=== PATIENT | male | born 1960 | race Caucasian/White ===

== ENCOUNTER 2020-02-24 01:56 | Inpatient (IN) | payer BC, OTHER ==
[2020-02-24 02:54] LABS: Hemoglobin 12.9 g/dL (14.0-18.0); Mean Corpuscular HGB CONC 33.2 g/dL (32.0-36.0); Mean Corpuscular Hemoglobin 28.7 pg (27.0-31.0); Mean Corpuscular Volume 86.6 fL (78.0-98.0); Mean Platelet Volume 9.1 fL (7.4-10.4); Platelet Count 184 thou/uL (130-400); RBC Distribution Width 14.2 % (11.5-14.5); White Blood Cell (WBC) Count 28.1 thou/uL (4.8-10.8)
[2020-02-24 02:56] LABS: ALT (SGPT) 29 U/L (8-55); AST (SGOT) 25 U/L (5-34); Albumin 3.3 g/dL (3.5-5.0); Alkaline Phosphatase 53 U/L (40-110); Anion Gap 14 mmol/L (10-20); BUN (Urea Nitrogen) 40 mg/dL (8.4-25.7); Bilirubin, Total 1.1 mg/dL (0.2-1.2); Calc. Creatinine Clearance 0 mL/min (70-130); Calcium 8.4 mg/dL (7.8-10.44); Carbon Dioxide 27 mmol/L (22-29); Chloride 98 mmol/L (98-107); Estimated GFR-MDRD 30; Glucose 191 mg/dL (70-105); Potassium 4.4 mmol/L (3.5-5.1); Protein, Total 6.3 g/dL (6.0-8.3); Sodium 135 mmol/L (136-145)
[2020-02-24 03:14] LABS: Band 24 % (5-11); Lymphocytes 7 % (21-51); MDiff Complete? YES; Metamyelocyte 6 % (0-0); Monocytes 5 % (0-10); Neutrophil 58 % (42-75); Platelet Morphology Comment Appears Adequate; RBC Morphology Normal
[2020-02-24 03:19] LABS: CKMB 4.8 ng/mL (0-6.6)
--- NOTE | 2020-02-24 07:53 | RAD ---
EXAM: Chest 2 views: HISTORY: Low oxygen saturation. Positive for Covid COMPARISON: None FINDINGS: There is a normal-sized cardiomediastinal silhouette. There is no evidence of consolidation, mass, or pleural effusion. The bones are unremarkable. IMPRESSION: No evidence of acute cardiopulmonary disease
[2020-02-24] MEDS ORDERED: Acetaminophen 325 MG TAB PO PRN (07:54)
[2020-02-24] MEDS ORDERED: Bisacodyl 5 MG TAB PO PRN (07:54)
[2020-02-24] MEDS ORDERED: Ondansetron PF 4 MG/2 ML Vial IVP PRN (07:54)
[2020-02-24] MEDS: Sodium Chloride 0.9% 1,000 ML IV SCH ×2 (08:00→21:17)
[2020-02-24] MEDS ORDERED: Heparin 5,000 UNITS/ML VIAL SC SCH (09:00)
--- NOTE | 2020-02-24 10:04 | ULT ---
ULTRASOUND DOPPLER DUPLEX VENOUS BILATERAL LOWER EXTREMITIES: DATE: 02/24/2020 HISTORY: 59-year-old male with bilateral lower extremity edema, left worse than right. TECHNIQUE: Grayscale, color-flow, and spectral analysis, of the bilateral common femoral, profunda femoral, grea ter saphenous, femoral, popliteal, and posterior tibial, veins. FINDINGS: Because of very large body habitus (reportedly greater than 500 pounds), there is poor visualization of the veins. Blood flow is demonstrated by color Doppler and pulse Doppler in all major bilateral lower extremity veins. However, evaluation with compression could not be applied to the veins of the left lower extremity be cause of the poor visualization. IMPRESSION: 1) Limited study with poor visualization of veins because of very large body habitus. 2.) No occlusive deep vein thrombosis identified.
--- NOTE | 2020-02-24 11:28 | PDOC.HHP ---
Hospitalist HPI - History of Present Illness shortness of breath History of Present Illness: This is a 59 year old male with past medical history of hypertension and diabetes who presented to the ER at [place] with shortness of breath. THe patient states he has been feeling short of breath for the past few months but it has progressively worsened. He states a few days ago he was hardly able to walk to the bathroom without getting short of breath. His shortness of breath is on exertion and at rest. He denied orthopnea. He reports that his left leg started swelling recently as well and would get parasthesias in that leg when he walks. He also reports cramps in his legs when he walks. The patient states he is relatively sedentary and has not ambulated much since the COVID pandemic. He used to weigh 450 pounds and is now 495 pounds. He denies headache, sore throat, feveres, night sweats. He states on Sunday he had an episode of severe chills and uncontrollable shaking that has since resolved. He went to [place] ER, he had WBC of 35.2, Hb 13.1, lactate of 2.6, creatinine of 2.4. He was noted to have a d-dimer of > 67,000 with procalcitonin 160, LDH 210. CTA was unable to be obtained due to body habitus. Chest Xray was normal and rapid COVID was negative. THe patient was given IV vancomycin and zosyn, normal salin with 1000 mg bolus and transferred here. The patient reports no improvement in his SOB since yesterday ED Course: Patient is a 59 year old male with a past medical history of hypertension and diabetes mellitus who was transferred to [facility] ED from [facility] ED on 02/23 with a chief complaint of shortness of breath and pain in the lower extremities. Patient had a standard PA and Lateral Chest x- ray and bilateral venous Doppler ultrasound performed. Patient was evaluated for possible DVT/PE in the emergency department, but no occlusive deep vein thrombosis was identified on venous Doppler ultrasound. Patient was admitted for further management. Hospitalist ROS - Review of Systems Constitutional: reports: chills (on Sunday). denies: fever ENT: denies: ear pain, ear discharge, mouth pain Respiratory: denies: cough Cardiovascular: denies: chest pain, palpitations, orthopnea Gastrointestinal: denies: nausea, vomiting, abdominal pain, diarrhea Genitourinary: denies: dysuria, frequency Musculoskeletal: reports: leg pain Skin: denies: rash, lesions Neurological: denies: weakness, numbness - Medication Medications: metformin PO benazepril PO Hospitalist History - Past Medical History Cardiac: reports: HTN Endocrine: reports: Diabetes - Past Surgical History Past Surgical History: reports: no pertinent history - Family History Family History: reports: cardiac disorder (Father with heart attack at age 42. Sister had colon cancer and is in remission Mother after gallbladder surgery) - Social History Smoking Status: Never smoker Alcohol: reports: None Drugs: reports: none Living Situation: Other (with his and son) - Exam General Appearance: NAD, awake alert Eye: PERRL, anicteric sclera ENT: normocephalic atraumatic, no oropharyngeal lesions Neck: no JVD Heart: RRR, no murmur, no gallops, no rubs Respiratory: CTAB, no wheezes, no rales, no ronchi Respiratory - other findings: diminished at bases Gastrointestinal: soft, non-tender, normal bowel sounds Gastrointestinal - other findings: distended Extremities - other findings: 4+ pitting edema, left worst than right. Diminished pulses Skin: normal turgor, no lesions, no rashes Neurological: cranial nerve grossly intact, normal sensation to touch, no focal deficits, no new deficit Musculoskeletal: normal tone, normal strength, no muscle wasting Psychiatric: normal affect, normal behavior, A&O x 3, oriented to person Hospitalist Results - Labs Result Diagrams: 02/24/20 02:26 02/24/20 02:26 Lab results: WBC 28.1 thou/uL (4.8-10.8) H 02/24/20 02:26 Hgb 12.9 g/dL (14.0-18.0) L 02/24/20 02:26 Hct 39.0 % (42.0-52.0) L 02/24/20 02:26 MCV 86.6 fL (78.0-98.0) 02/24/20 02:26 Plt Count 184 thou/uL (130-400) 02/24/20 02:26 Band Neuts % (Manual) 24 % (5-11) H 02/24/20 02:26 Sodium 135 mmol/L (136-145) L 02/24/20 02:26 Potassium 4.4 mmol/L (3.5-5.1) 02/24/20 02:26 Chloride 98 mmol/L (98-107) 02/24/20 02:26 Carbon Dioxide 27 mmol/L (22-29) 02/24/20 02:26 BUN 40 mg/dL (8.4-25.7) H 02/24/20 02:26 Creatinine 2.28 mg/dL (0.7-1.3) H 02/24/20 02:26 Glucose 191 mg/dL (70-105) H 02/24/20 02:26 Lactic Acid 1.7 mmol/L (0.5-2.2) 02/24/20 02:26 Calcium 8.4 mg/dL (7.8-10.44) 02/24/20 02:26 Total Bilirubin 1.1 mg/dL (0.2-1.2) 02/24/20 02:26 AST 25 U/L (5-34) 02/24/20 02:26 ALT 29 U/L (8-55) 02/24/20 02:26 Alkaline Phosphatase 53 U/L (40-110) 02/24/20 02:26 CK-MB (CK-2) 4.8 ng/mL (0-6.6) 02/24/20 02:26 Troponin I 0.049 ng/mL (< 0.028) H 02/24/20 02:26 Serum Total Protein 6.3 g/dL (6.0-8.3) 02/24/20 02:26 Albumin 3.3 g/dL (3.5-5.0) L 02/24/20 02:26 - EKG Interpretation EKG: sinus tachycardia Hospitalist H&P A/P - Plan Plan: Dopplers: no DVT noted This is a 59 year old male with past medical history of hypertension and diabetes who presents with dyspnea on exertion for the past few months, tachycardia Acute hypoxic respiratory failure secondary to possible PE vs pneumonia - patient has had improvement in WBC - will continue vancomycin and zosyn. COVID negative x 2 - given d-dimer of > 67,000 and unable to do CTA, will treat with anticoagulation empirically with lovenox. Dopplers negative for DVT but limited by body habitus - trend troponins - check ECHO - BNP elevated - order stress test tomorrow Type II diabetes - continue insulin sliding scale Hypertension - BP controlled, will monitor DVT prophylaxiS: lovenox Code status: full code
[2020-02-24] MEDS ORDERED: Enoxaparin Sodium 120 MG/0.8 ML SYRINGE SC SCH (13:00)
[2020-02-24] MEDS ORDERED: Piperacillin/Tazobactam 3.375 GM VIAL ONE (13:23)
[2020-02-24] MEDS: Piperacillin/Tazobactam 3.375 GM in Sodium Chloride 0.9% 100 ML IVPB SCH ×2 (14:00→20:56)
[2020-02-24] MEDS ORDERED: Dextrose 5% in Water 1,000 ML IV PRN (19:17)
[2020-02-24] MEDS ORDERED: Dextrose 50% Abboject 50 ML SYRINGE SLOW IVP PRN (19:17)
[2020-02-24] MEDS ORDERED: Labetalol HCl 100 MG/20 ML VIAL SLOW IVP PRN (19:27)
[2020-02-24 20:37] LABS: CKMB 3.6 ng/mL (0-6.6)
[2020-02-24] MEDS: Enoxaparin Sodium 120 MG/0.8 ML SYRINGE SC SCH (20:54)
[2020-02-25 01:57] LABS: Hemoglobin 12.6 g/dL (14.0-18.0); Mean Corpuscular HGB CONC 31.6 g/dL (32.0-36.0); Mean Corpuscular Hemoglobin 27.8 pg (27.0-31.0); Mean Corpuscular Volume 88.1 fL (78.0-98.0); Mean Platelet Volume 9.2 fL (7.4-10.4); Platelet Count 189 thou/uL (130-400); RBC Distribution Width 14.3 % (11.5-14.5); Red Blood Cell (RBC) Count 4.55 mill/uL (4.70-6.10); White Blood Cell (WBC) Count 22.4 thou/uL (4.8-10.8)
[2020-02-25 02:31] LABS: Anion Gap 17 mmol/L (10-20); BUN (Urea Nitrogen) 50 mg/dL (8.4-25.7); Calc. Creatinine Clearance 129 mL/min (70-130); Calcium 8.6 mg/dL (7.8-10.44); Carbon Dioxide 25 mmol/L (22-29); Chloride 99 mmol/L (98-107); Estimated GFR-MDRD 35; Glucose 178 mg/dL (70-105); Potassium 4.1 mmol/L (3.5-5.1); Sodium 137 mmol/L (136-145)
[2020-02-25] MEDS: Piperacillin/Tazobactam 3.375 GM in Sodium Chloride 0.9% 100 ML IVPB SCH ×4 (03:02→21:20)
[2020-02-25] MEDS: Enoxaparin Sodium 120 MG/0.8 ML SYRINGE SC SCH (09:09)
[2020-02-25 10:48] VITALS: BMI 65.3
[2020-02-25] MEDS: Sodium Chloride 0.9% 1,000 ML IV SCH (11:10)
[2020-02-25 12:38] LABS: Hemoglobin 12.1 g/dL (14.0-18.0); Platelet Count 210 thou/uL (130-400)
[2020-02-25] MEDS: Heparin 25,000 units/D5W 500 ML IVPB SCH (15:23)
--- NOTE | 2020-02-25 15:41 | PDOC.HOSPP ---
- Subjective Encounter Date: 02/25/20 Encounter Time: 07:00 Subjective: The patient is feeling slightly better. He reports improvement in SOB with antibiotics and lovenox. He does state that he does have some orthopnea. He was unable to get stress test today due to body habitus He has no significant cough. Patient states he was evaluated for bariatric surgery in past, states he has to lose 90 more pounds for this - Objective Vital Signs & Weight: Vital Signs (12 hours) Temp Pulse Resp BP BP Pulse Ox 02/25/20 12:02 98.9 F 95 20 130/67 92 L 02/25/20 11:47 98.4 F 91 18 125/72 92 L 02/25/20 08:53 99.4 F 89 18 133/81 92 L Weight Admit Weight 493 lb 12.8 oz Weight 495 lb 1.6 oz I&O: 02/24/20 02/25/20 02/26/20 06:59 06:59 06:59 Intake Total 1380 Balance 1380 Result Diagrams: 02/25/20 12:25 02/25/20 01:50 Hospitalist ROS - Review of Systems Constitutional: denies: fever, chills - Medication Medications: Active Medications Generic Name Dose Route Start Last Admin Trade Name Freq PRN Reason Stop Dose Admin Acetaminophen 650 mg 02/24/20 07:54 02/24/20 20:51 Tylenol PO 650 mg Q4H PRN Administration Headache/Fever/Mild Pain (1-3) Sodium Chloride 1,000 mls @ 75 mls/hr 02/24/20 08:00 02/25/20 11:10 Normal Saline 0.9% IV Not Given .[id number] TANIA Piperacillin Sod/Tazobactam 100 mls @ 200 mls/hr 02/24/20 14:00 02/25/20 14: 20 Sod 3.375 gm/ Sodium Chloride IVPB 100 mls Q6H TANIA Administration Heparin Sodium/Dextrose 500 mls @ 0 mls/hr 02/25/20 12:15 02/25/20 15:23 Heparin 25,000 Units/D5w IVPB 500 mls INF TANIA Administration Protocol Per Protocol Sodium Chloride 10 ml 02/24/20 21:00 02/25/20 09:12 Flush - Normal Saline IVF 10 ml Q12HR TANIA Administration - Exam General Appearance: NAD, awake alert Eye: PERRL, anicteric sclera ENT: normocephalic atraumatic, no oropharyngeal lesions Neck: no JVD Heart: RRR, no murmur, no gallops, no rubs Respiratory: CTAB, no wheezes, no rales, no ronchi Gastrointestinal: soft, non-tender, non-distended, normal bowel sounds Extremities: no cyanosis, no clubbing, 2+ LE edema Skin: normal turgor, no lesions, no rashes Neurological: cranial nerve grossly intact, normal sensation to touch, no focal deficits, no new deficit Musculoskeletal: normal tone, normal strength, no muscle wasting Psychiatric: normal affect, normal behavior, A&O x 3, oriented to person Hosp A/P - Plan This is a 59 year old male with past medical history of hypertension and diabetes who presents with dyspnea on exertion for the past few months, tachycardia Acute hypoxic respiratory failure secondary to possible PE vs pneumonia - continue zosyn for now. Blood culture showed 1/2 E coli. Repeat blood culture - unable to do CTA to rule out PE or CT abdomen - d-dimer was 67,000. Switch therapeutic lovenox to heparin drip given kidney dysfunction - check ECHO JAZ - creatinine improved to 1.97 with IV fluids, will continue for now Type II diabetes - continue insulin sliding scale Hypertension - BP controlled, will monitor
[2020-02-25] MEDS: Heparin 10,000 UNITS/ 10 ML VIAL SLOW IVP SCH (22:18)
[2020-02-26] MEDS: Piperacillin/Tazobactam 3.375 GM in Sodium Chloride 0.9% 100 ML IVPB SCH ×4 (01:25→20:49)
[2020-02-26] MEDS: Heparin 25,000 units/D5W 500 ML IVPB SCH ×3 (01:25→19:09)
[2020-02-26 04:44] LABS: Hemoglobin 11.9 g/dL (14.0-18.0); Mean Corpuscular HGB CONC 33.3 g/dL (32.0-36.0); Mean Corpuscular Hemoglobin 28.8 pg (27.0-31.0); Mean Corpuscular Volume 86.4 fL (78.0-98.0); Mean Platelet Volume 9.1 fL (7.4-10.4); Platelet Count 206 thou/uL (130-400); RBC Distribution Width 14.1 % (11.5-14.5); Red Blood Cell (RBC) Count 4.13 mill/uL (4.70-6.10); White Blood Cell (WBC) Count 19.2 thou/uL (4.8-10.8)
[2020-02-26 05:02] LABS: Anion Gap 14 mmol/L (10-20); BUN (Urea Nitrogen) 43 mg/dL (8.4-25.7); Calc. Creatinine Clearance 169 mL/min (70-130); Calcium 8.2 mg/dL (7.8-10.44); Carbon Dioxide 25 mmol/L (22-29); Chloride 100 mmol/L (98-107); Estimated GFR-MDRD 48; Glucose 196 mg/dL (70-105); Sodium 135 mmol/L (136-145)
[2020-02-26] MEDS: HumaLOG 300 UNITS/3 ML VIAL SC PRN ×3 (07:48→17:03)
[2020-02-26] MEDS: Sodium Chloride 0.9% 1,000 ML IV SCH ×2 (08:31→20:50)
[2020-02-26] MEDS: Heparin 10,000 UNITS/ 10 ML VIAL SLOW IVP SCH (12:33)
[2020-02-26 12:53] LABS: Bilirubin Negative (Negative); Blood, Urine 2+ (Negative); Clarity Turbid (Clear); Glucose, Urine (Dipstick) Normal (Negative); Ketone, Urine Negative (Negative); Leukocyte 250 Leu/uL (Negative); Nitrite Negative (Negative); Protein, Urine (Dipstick) 50 mg/dL (Neg-Trace); Squamous Epithelial 0-3 HPF (0-3); Urobilinogen Normal mg/dL (Less than 2); pH, Urine 5.5 (5.0-9.0)
[2020-02-26 12:59] LABS: Bacteria/HPF 2+ HPF (None Seen)
--- NOTE | 2020-02-26 16:30 | PDOC.HOSPP ---
- Subjective Encounter Date: 02/26/20 Encounter Time: 07:00 Subjective: Patient is feeling better today, and he was able to sleep during the night. He woke up 5-6 times throughout the night in order to urinate. Patient reports improvement in SOB and orthopnea. He has no significant cough. He denies pain with breathing, fever, chills, palpitations, nausea, vomiting, headache, change in vision. ECHO was inconclusive due to body habitus. Consider repeat ECHO tomorrow. - Objective Vital Signs & Weight: Vital Signs (12 hours) Temp Pulse Resp BP BP Pulse Ox 02/26/20 11:15 99.4 F 91 20 141/84 H 94 L 02/26/20 10:57 170/79 H 02/26/20 07:20 98.5 F 90 20 140/84 98 Weight Admit Weight 493 lb 12.8 oz Weight 491 lb 8 oz I&O: 02/25/20 02/26/20 02/27/20 06:59 06:59 06:59 Intake Total 1380 3115 Balance 1380 3115 Result Diagrams: 02/26/20 04:21 02/26/20 04:21 Additional Labs: Accuchecks 02/26/20 02/26/20 02/25/20 10:53 05:57 20:47 POC Glucose 177 H 187 H 165 H 02/25/20 02/25/20 02/25/20 16:53 11:19 06:21 POC Glucose 136 H 142 H 167 H 02/24/20 22:02 POC Glucose 156 H Hospitalist ROS - Review of Systems Constitutional: denies: fever, chills, weakness Eyes: denies: vision change ENT: denies: ear pain, nose congestion Respiratory: reports: cough. denies: shortness of breath Cardiovascular: denies: chest pain, palpitations, light headedness Gastrointestinal: denies: nausea, vomiting, abdominal pain, diarrhea, constipation Genitourinary: denies: dysuria Neurological: denies: change in speech - Medication Medications: Active Medications Generic Name Dose Route Start Last Admin Trade Name Freq PRN Reason Stop Dose Admin Acetaminophen 650 mg 02/24/20 07:54 02/24/20 20:51 Tylenol PO 650 mg Q4H PRN Administration Headache/Fever/Mild Pain (1-3) Heparin Sodium (Porcine) 0 units 02/25/20 12:15 02/26/20 12:33 Heparin 1,000 Units/Ml (10 Ml) SLOW IVP 9,000 unit ASDIR TANIA Administration Protocol Sodium Chloride 1,000 mls @ 75 mls/hr 02/24/20 08:00 02/26/20 08:31 Normal Saline 0.9% IV Not Given .[id number] TANIA Piperacillin Sod/Tazobactam 100 mls @ 200 mls/hr 02/24/20 14:00 02/26/20 15: 38 Sod 3.375 gm/ Sodium Chloride IVPB 100 mls Q6H TANIA Administration Heparin Sodium/Dextrose 500 mls @ 0 mls/hr 02/25/20 12:15 02/26/20 11:20 Heparin 25,000 Units/D5w IVPB 500 mls INF TANIA Administration Protocol Per Protocol Insulin Human Lispro 0 units 02/24/20 19:17 02/26/20 12:03 Humalog SC 2 unit .MILD SLIDING SCALE PRN Administration Mild Correctional Scale Sodium Chloride 10 ml 02/24/20 21:00 02/26/20 08:27 Flush - Normal Saline IVF Not Given Q12HR TANIA - Exam General Appearance: awake alert Eye: PERRL, anicteric sclera ENT: normocephalic atraumatic Neck: supple, symmetric Heart: RRR, no murmur, normal peripheral pulses Respiratory: CTAB, no wheezes, no rales, no tachypnea Gastrointestinal: soft, non-tender Extremities: no cyanosis, no clubbing, no edema Skin: normal turgor Skin - other findings: painful lesions on the upper and lower lip Neurological: cranial nerve grossly intact Musculoskeletal: normal tone, normal strength Psychiatric: oriented to person, oriented to place, oriented to time Hosp A/P - Plan This is a 59 year old male with past medical history of hypertension and diabetes who presents with dyspnea on exertion for the past few months, tachycardia Sepsis secondary gram negative bacteremia - improving - RR 25/min, WBC 28.1 thou/uL, tachycardia + 2/2 blood cultures + for gram negative rods - WBC 19.2 thou/uL on 02/25, trending down - continue Zosyn Acute hypoxic respiratory failure secondary to possible PE - resolved - resolved, now on room air - unable to do CTA to rule out PE, however given d-dimer of >67,000 PE was not ruled out - continue heparin drip - switch to DOAC when creatinine improves Elevated troponin - troponin elevated slightly - ECHO was not conclusive, left ventricle and right ventricle were not well visualized, mild tricuspid regurgitation - consider repeat ECHO JAZ - improving - creatinine improved to 1.51 with IV fluids, will continue for now Type II diabetes - not controlled - glucose 197 - increase insulin sliding scale Hypertension - BP controlled, will monitor
[2020-02-26] MEDS: Acyclovir 5% Oint. 15 GM TUBE TOP SCH ×2 (21:00→23:57)
[2020-02-27] MEDS: Heparin 25,000 units/D5W 500 ML IVPB SCH ×3 (02:17→18:20)
[2020-02-27] MEDS: Piperacillin/Tazobactam 3.375 GM in Sodium Chloride 0.9% 100 ML IVPB SCH (03:00)
[2020-02-27] MEDS: HumaLOG 300 UNITS/3 ML VIAL SC PRN ×2 (05:49→11:06)
[2020-02-27 06:18] LABS: Mean Corpuscular HGB CONC 30.9 g/dL (32.0-36.0); Mean Corpuscular Hemoglobin 26.9 pg (27.0-31.0); Mean Corpuscular Volume 87.2 fL (78.0-98.0); Mean Platelet Volume 9.2 fL (7.4-10.4); Platelet Count 213 thou/uL (130-400); RBC Distribution Width 14.1 % (11.5-14.5); Red Blood Cell (RBC) Count 4.44 mill/uL (4.70-6.10)
[2020-02-27 06:39] LABS: Anion Gap 15 mmol/L (10-20); BUN (Urea Nitrogen) 28 mg/dL (8.4-25.7); Calc. Creatinine Clearance 194 mL/min (70-130); Calcium 8.1 mg/dL (7.8-10.44); Carbon Dioxide 23 mmol/L (22-29); Chloride 101 mmol/L (98-107); Estimated GFR-MDRD 56; Glucose 195 mg/dL (70-105); Potassium 3.8 mmol/L (3.5-5.1); Sodium 135 mmol/L (136-145)
[2020-02-27] MEDS: Heparin 10,000 UNITS/ 10 ML VIAL SLOW IVP SCH ×2 (07:00→19:02)
[2020-02-27] MEDS: Acyclovir 5% Oint. 15 GM TUBE TOP SCH (08:48)
[2020-02-27] MEDS: Sodium Chloride 0.9% 1,000 ML IV SCH ×3 (08:59→18:20)
[2020-02-27] MEDS ORDERED: valACYclovir 500 MG TAB PO SCH (10:45)
--- NOTE | 2020-02-27 10:53 | PDOC.HOSPP ---
- Subjective Encounter Date: 02/27/20 Encounter Time: 07:00 Subjective: Patient is continuing to feel better, and he was able to sleep throughout the night. Patient reports shortness of breath with exertion, but denies shortness of breath at rest, orthopnea, and PND. He has no significant cough. Patient reports two new lesions on the nose and right face that formed overnight, and the upper lip lesion has increased in size with black scab covering the surface. He reports occasional, mild pain when he presses on the lesions. He denies pain with breathing, fever, chills, palpitations, headache, change in vision, nausea, vomiting, diarrhea, and constipation. Repeat ECHO was considered, but discussed with patient that it will likely be inconclusive again, patient agreeable to holding off - Objective Vital Signs & Weight: Vital Signs (12 hours) Temp Pulse Resp BP Pulse Ox 02/27/20 07:24 99.1 F 93 20 146/73 H 94 L 02/27/20 03:41 98 F 81 18 134/70 98 Weight Admit Weight 493 lb 12.8 oz Weight 491 lb 8 oz I&O: 02/26/20 02/27/20 02/28/20 06:59 06:59 06:59 Intake Total 3115 2705 Balance 3115 2705 Result Diagrams: 02/27/20 05:54 02/27/20 05:54 Additional Labs: Accuchecks 02/27/20 02/26/20 02/26/20 05:48 20:35 16:17 POC Glucose 221 H 161 H 186 H 02/26/20 02/26/20 02/25/20 10:53 05:57 20:47 POC Glucose 177 H 187 H 165 H 02/25/20 02/25/20 02/25/20 16:53 11:19 06:21 POC Glucose 136 H 142 H 167 H 02/24/20 22:02 POC Glucose 156 H Hospitalist ROS - Review of Systems Constitutional: denies: fever, chills, weakness Eyes: denies: pain, vision change ENT: denies: ear pain, ear discharge, nose congestion, throat pain Respiratory: reports: cough (non-productive), SOB with excertion. denies: hemoptysis Cardiovascular: denies: chest pain, palpitations, orthopnea, paroxysmal noc. dyspnea, light headedness Gastrointestinal: denies: nausea, vomiting, abdominal pain, diarrhea, constipation Genitourinary: denies: dysuria Skin: reports: lesions (Two new erythematous lesions on the nose and right face that formed overnight, the upper lip lesion has increased in size overnight, mild pain when he presses on the lesions) Neurological: denies: weakness, change in speech - Medication Medications: Active Medications Generic Name Dose Route Start Last Admin Trade Name Freq PRN Reason Stop Dose Admin Acetaminophen 650 mg 02/24/20 07:54 02/24/20 20:51 Tylenol PO 650 mg Q4H PRN Administration Headache/Fever/Mild Pain (1-3) Heparin Sodium (Porcine) 0 units 02/25/20 12:15 02/27/20 07:00 Heparin 1,000 Units/Ml (10 Ml) SLOW IVP 9,000 unit ASDIR TANIA Administration Protocol Heparin Sodium/Dextrose 500 mls @ 0 mls/hr 02/25/20 12:15 02/27/20 09:27 Heparin 25,000 Units/D5w IVPB 500 mls INF TANIA Administration Protocol Per Protocol Insulin Human Lispro 0 units 02/24/20 19:17 02/27/20 05:49 Humalog SC 3 unit .MILD SLIDING SCALE PRN Administration Mild Correctional Scale Sodium Chloride 10 ml 02/24/20 21:00 02/27/20 08:49 Flush - Normal Saline IVF Not Given Q12HR TANIA - Exam General Appearance: NAD, awake alert General - other findings: morbidly obese Eye: PERRL, anicteric sclera ENT: normocephalic atraumatic, no oropharyngeal lesions, moist mucosa Neck: supple, symmetric Heart: RRR, no murmur, no gallops, no rubs, normal peripheral pulses Respiratory: CTAB, no wheezes, no rales, no ronchi, no tachypnea Gastrointestinal: soft, non-tender Extremities: no cyanosis, no clubbing, 1+ LE edema Skin: normal turgor Skin - other findings: two painful erythematous lesions on face, upper lip lesion with black scab Neurological: cranial nerve grossly intact, normal sensation to touch, no weakness, no new deficit Musculoskeletal: normal tone, normal strength, no muscle wasting Psychiatric: normal affect, normal behavior, A&O x 3 Hosp A/P - Plan This is a 59 year old male with past medical history of hypertension and diabetes who presents with dyspnea on exertion for the past few months, tachycardia Sepsis secondary gram negative bacteremia - improving - RR 25/min, WBC 28.1 thou/uL, tachycardia + 2/2 blood cultures + for E coli - WBC 14.0 thou/uL on 02/26, trending down - discontinue Zosyn, switch to Levaquin 750 mg PO 0600 TANIA to complete 14 day course of antibiotics Acute hypoxic respiratory failure secondary to possible PE - resolved - resolved, now on room air - unable to do CTA to rule out PE, however given d-dimer of >67,000 PE was not ruled out. Started on heparin drip, continue until JAZ resolves, then switch to DOAC. Repeat d-dimer 1.12 Elevated troponin - troponin elevated slightly - ECHO was not conclusive, left ventricle and right ventricle were not well visualized, mild tricuspid regurgitation. 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
[2020-02-27 12:23] LABS: PTT 116.3 sec (22.9-36.1)
[2020-02-27] MEDS: valACYclovir 500 MG TAB PO SCH (20:55)
[2020-02-28] MEDS: Heparin 25,000 units/D5W 500 ML IVPB SCH ×2 (01:07→07:58)
[2020-02-28 04:09] VITALS: TEMP 98.6
[2020-02-28] MEDS: Sodium Chloride 0.9% 1,000 ML IV SCH (04:50)
[2020-02-28 05:52] LABS: Hemoglobin 11.4 g/dL (14.0-18.0); Mean Corpuscular HGB CONC 30.4 g/dL (32.0-36.0); Mean Corpuscular Hemoglobin 26.5 pg (27.0-31.0); Mean Corpuscular Volume 87.1 fL (78.0-98.0); Mean Platelet Volume 8.6 fL (7.4-10.4); Platelet Count 239 thou/uL (130-400); RBC Distribution Width 14.3 % (11.5-14.5); White Blood Cell (WBC) Count 11.6 thou/uL (4.8-10.8)
[2020-02-28] MEDS: HumaLOG 300 UNITS/3 ML VIAL SC PRN (06:13)
[2020-02-28 06:14] LABS: Anion Gap 12 mmol/L (10-20); BUN (Urea Nitrogen) 18 mg/dL (8.4-25.7); Calc. Creatinine Clearance 222 mL/min (70-130); Calcium 8.3 mg/dL (7.8-10.44); Carbon Dioxide 27 mmol/L (22-29); Chloride 102 mmol/L (98-107); Estimated GFR-MDRD 65; Glucose 186 mg/dL (70-105); Potassium 3.8 mmol/L (3.5-5.1); Sodium 137 mmol/L (136-145)
[2020-02-28] MEDS: valACYclovir 500 MG TAB PO SCH (07:55)
[2020-02-28] MEDS ORDERED: Warfarin Sodium 5 MG TAB PO SCH ×2 (10:15→17:00)
--- NOTE | 2020-02-28 11:42 | RAD ---
Chest AP view INDICATION: Chest pain COMPARISON: February 24, 2020 chest radiograph FINDINGS: Lungs: The lungs are clear Cardiac silhouette: The cardiomediastinal silhouette appears within normal limits. Pulmonary vasculature: Normal Pleural spaces: No pleural effusion or pneumothorax is demonstrated. Upper abdomen: No abnormality seen. Osseous structures: No acute osseous abnormality. Additional findings: None. IMPRESSION: No acute cardiopulmonary abnormality.
[2020-02-28 15:04] LABS: INR-International Normal Ratio 1.1
[2020-02-28 20:21] VITALS: BP 163/74
--- NOTE | 2020-02-29 09:07 | DIS ---
DATE OF ADMISSION: 02/24/2020 DATE OF DISCHARGE: 02/28/2020 DISCHARGE DIAGNOSES: 1. Acute hypoxic respiratory failure, possibly secondary to pulmonary embolism. 2. Lower extremity swelling, possibly secondary to deep venous thrombosis. 3. Sepsis secondary to Escherichia coli bacteremia possibly secondary to urinary tract infection. 4. Elevated troponin likely secondary to demand ischemia. 5. Acute kidney injury. 6. Type 2 diabetes. 7. Likely herpes labialis infection of the lips. CONSULTATIONS: None. PROCEDURES: None. BRIEF HISTORY OF PRESENT ILLNESS: This is a 59-year-old male, with past medical history of morbid obesity, hypertension, and diabetes, who presented to the emergency room at [facility] with shortness of breath. The patient reported shortness of breath for the past ones that was progressively worse. He also reported swelling of his legs and paresthesias in his legs when he walks. He also reported cramps in his legs as well. The patient also reported severe chills on the day of admission. He was noted to have a white count of 35.2, lactate of 2.6, creatinine of 2.4, and D-dimer 67,000. He also had a procalcitonin of 116, LDH of 210. CTA of his chest was ordered and CT of abdomen and pelvis as well however these were unable to be done due to his body habitus. Chest x-ray was normal. The patient was transferred here after given IV vancomycin and Zosyn. HOSPITAL COURSE: 1. Acute hypoxic respiratory failure secondary to possible PE: The patient had a chest x-ray which was normal. He reported only mild improvement in his shortness of breath on Zosyn. He had a D-dimer of 67,000. CTA was unable to be done due to his morbid obesity. V/Q scans are not able to be done in the hospital due to risk of aerosolization. Dopplers were checked, which were negative for DVT. However , it was a limited study with poor visualization of his veins. The patient was started on Lovenox empirically and he did report some improvement in his shortness of breath. However, due to his kidney injury, he was switched to a heparin drip. Repeat d-dimer was 1.12. At the time of discharge, it was decided to transition the patient to Coumadin for presumptive PE given his Wells score of 7.5. He was given Coumadin 5 mg. He was instructed to go to an urgent care center or see his PCP on Sunday for an INR check. For bridging , he was prescribed Lovenox 224 mg sub q bid up until Sunday.and I did discuss this with his pharmacist at [facility]. The patient should consider 6 months of anticoagulation therapy and consider a repeat D-dimer after discontinuation. 2. Sepsis secondary to E. Coli bacteremia: The patient presented with a white count of 28, was tachycardic and had 2/2 blood cultures positive for E. coli. He was started on Zosyn, which he received for 5 days. He was switched to Levaquin 750 mg. He will be discharged with Levaquin for 9 more days to complete a 14-day course of antibiotics. Repeat blood cultures were negative. 3. Elevated troponin: The patient did have a slightly elevated troponin of 0.049. Echo was done, which appeared normal, however, the left ventricle was not well visualized and neither was the right ventricle. A stress test was attempted, however, the patient was too obese to fit in the stress test machine, so this was not able to be done. Consider cardiac workup as an outpatient. 4. Herpes labialis: The patient was noted to have a mild herpes simplex infection on the top lip which grew in size over the next several days. He also reported pain in that area. He did have HSV I and II, PCR swab of his lip, however, results are pending at this time. However, due to high suspicion, he was started on valacyclovir 1000 mg p.o. q.12 and will be discharged with this for 7 days. DISCHARGE PHYSICAL EXAMINATION: VITAL SIGNS: Temperature 98.6, heart rate 83, respiratory rate 20, O2 saturation 100% on room air, blood pressure 138/79. GENERAL: The patient is morbidly obese. CVS: Regular rate and rhythm with no murmurs, rubs, or gallops. LUNGS: Clear to auscultation bilaterally. ABDOMEN: Positive bowel sounds, soft, nontender, nondistended. EXTREMITIES: The patient does have mild 1 to 2+ pitting edema. HEENT: The patient has healed herpes labialis lesion on his top lip which is black in appearance. It appears to be scabbing. LABORATORY DATA: CBC 02/27: White count 11.6, hemoglobin 11.4, hematocrit 37.5, platelet count 239. BMP 02/27: Creatinine is 1.15. Rest of BMP unremarkable. Lactic acid: 1.7. LFTs 02/23: AST 25, ALT 29, and alkaline phosphatase 53. Troponin I: 0.049, 0.030. CK-MB: 4.8. BNP: 13. UA 02/25: Shows turbid urine with 50 protein, 2+ blood, 250 leukocyte esterase, negative nitrite, 11 to 20 white blood cells. COVID PCR 02/23: Negative. Echo 02/24: Mild TR. LV not well visualized. Technically inadequate exam. DISCHARGE CONDITION: Stable. ACTIVITY: As tolerated. DIET: Heart healthy diet. DISCHARGE MEDICATIONS: 1. Levaquin 750 mg p.o. q.a.m. 2. Warfarin 5 mg p.o. daily. 3. Lovenox 224 mg SC bid 4. Benazepril 10 mg p.o. daily. 5. Valtrex 1000 mg p.o. q.12 hours. MEDICATION CHANGES: Benazepril was reduced to 10 mg daily due to his acute kidney injury that he had while in the hospital. DISCHARGE INSTRUCTIONS: Patient should follow up with PCP In a week. Get repeat INR on Sunday for subsequent coumadin dosing. Job ID: [id number] [id number]
== END 2020-02-28 17:42 | disposition home or self-care (01) | DRG 871 ==
LOC: ERS 01:56 → ERHOLD 05:53 → 2NO 18:33
PROVIDERS: ADMIT Family Medicine; ATTEND Family Medicine
DX: A41.51 Sepsis due to Escherichia coli [E. coli] (principal); J96.01 Acute respiratory failure with hypoxia; I26.99 Other pulmonary embolism without acute cor pulmonale; N39.0 Urinary tract infection, site not specified; I24.8 Other forms of acute ischemic heart disease; N17.9 Acute kidney failure, unspecified; Z68.44 Body mass index [BMI] 60.0-69.9, adult; I82.409 Acute embolism and thrombosis of unspecified deep veins of unspecified lower extremity; Z20.828 Contact with and (suspected) exposure to other viral communicable diseases; E11.9 Type 2 diabetes mellitus without complications; B00.1 Herpesviral vesicular dermatitis; E66.01 Morbid (severe) obesity due to excess calories; I10 Essential (primary) hypertension; Z79.899 Other long term (current) drug therapy; Z79.84 Long term (current) use of oral hypoglycemic drugs; Z28.21 Immunization not carried out because of patient refusal
CPT/HCPCS: 36415; 36416; 36600; 71045; 71046; 80048; 80053; 81003; 81015; 82553; 83605; 83880; 84484; 85025; 85027; 85379; 85610; 85730; 87040; 87077; 87086; 87149; 87186; 87529; 93005; 93306; 93970; J1644; J1650; J2543; J3490; U0002